=== PATIENT | female | born 1975 ===

== ENCOUNTER 2016-06-02 13:06 | Emergency (ER) | payer MEDICAID ==
[2016-06-02 13:14] VITALS: PULSE 78
[2016-06-02] MEDS ORDERED: LIDOCAINE 5% 1 EA PATCH TD ONE (15:16)
--- NOTE | 2016-06-02 15:19 | EDPHY ---
H & P Time Seen by Provider: 06/02/16 14:06 HPI/ROS: CHIEF COMPLAINT: midback pain, shortness of breath HISTORY OF PRESENT ILLNESS: 40-year-old homeless female presents to the emergency department with pain in her mid back and feeling short of breath. She states yesterday around 3:00 p.m. she lost her balance on some gravel and fell back on her back. She denies hitting her head or losing consciousness. She complains of upper to mid back pain and pain especially with deep breathing. She feels mildly short of breath. Denies any other chest pain. Denies abdominal pain. Denies pain in upper or lower extremities. Denies paresthesias in her upper lower extremities. REVIEW OF SYSTEMS: Constitutional: No fever, no chills. Eyes: No double or blurry vision. ENT: No sore throat. Respiratory: No cough, no shortness of breath. Cardiac: No chest pain. Gastrointestinal: No abdominal pain, vomiting or diarrhea. Genitourinary: No dysuria. Musculoskeletal: Back pain as above Skin: No rashes. Neurological: No headache. Past Medical/Surgical History: negative Social History: Homeless Smoking Status: Current every day smoker Physical Exam: General Appearance: Alert, no distress. 97% on room air. Eyes: Pupils equal and round. Extraocular motions are all intact. ENT: Mouth: Mucous membranes moist. Respiratory: No wheezing, rhonchi, or rales, lungs are clear to auscultation. Cardiovascular: Regular rate and rhythm. Gastrointestinal: Abdomen is soft and nontender, no masses, no rebound or guarding, bowel sounds normal. Neurological: Alert and oriented x 3, cranial nerves II through XII grossly intact Skin: Warm and dry, no rashes. Musculoskeletal: Tender with palpation along the upper thoracic spine. No palpable crepitus or other bony abnormality. No CVA tenderness bilaterally. Her neck is supple. Nontender to palpate along cervical or lumbar spine. No physical signs of trauma to her back. Extremities: Full range of motion and no peripheral edema. Psychiatric: Patient is oriented X 3, there is no agitation. Constitutional: Initial Vital Signs Temperature (C) 36.3 C 06/02/16 13:11 Heart Rate 78 06/02/16 13:11 Respiratory Rate 18 06/02/16 13:11 Blood Pressure 120/88 H 06/02/16 13:11 O2 Sat (%) 97 06/02/16 13:11 O2 Delivery Mode Room Air Allergies/Adverse Reactions: acetaminophen [From Vicodin] Allergy (Verified 06/02/16 13:10) hydrocodone bitartrate [From Vicodin] Allergy (Verified 06/02/16 13:10) Home Medications: Medication Instructions Recorded Vistaril 06/02/16 Medical Decision Making - Diagnostics Imaging: Chest x-ray reveals no acute pulmonary disease. No obvious compression deformity. This is reviewed by myself the PAC system as well as by the radiologist. ED Course/Re-evaluation: 40-year-old female presents after mechanical fall yesterday afternoon. She has reproducible pain with palpation along the thoracic spine. Chest x-ray was normal. No evidence of pneumothorax or obvious compression deformity. Patient was given Lidoderm patch since she has been taking ibuprofen without relief. I explained that we would not prescribe narcotic medication for her. I did encourage close follow-up with primary care provider and she should return if she feels short of breath, develops increasing pain or any other concerns. Differential Diagnosis: Back pain including but not limited to muscular pain, herniated disc, spine fracture, pneumothorax, contusion - Data Points Medications Given: Discontinued Medications Lidocaine (Lidoderm 5%) 1 ea TD EDNOW ONE Stop: 06/02/16 15:17 Last Admin: 06/02/16 15:52 Dose: 1 ea Departure - Departure Disposition: Home, Routine, Self-Care Clinical Impression: Contusion of mid back Qualifiers: Encounter type: initial encounter Laterality: unspecified laterality Qualified Code(s): S20.229A - Contusion of unspecified back wall of thorax, initial encounter Instructions: Back Pain (ED) Additional Instructions: Ibuprofen 600mg every 8 hours for pain as directed. Activity as tolerated. Deep breaths. Return if you have any change in symptoms or if you feel worse in any way. Lidoderm patch should be removed 12 hours after applied. Referrals: [facility],. [Clinic] - As per Instructions
[2016-06-02 15:53] VITALS: BP 123/84; RESP 17; TEMP 98.8; O2SAT 95
[2016-06-02] MEDS ORDERED: PATCH REMOVAL 1 EA PATCH TD SCH (21:00)
== END 2016-06-02 15:52 | disposition home or self-care (01) ==
DX: S20.229A Contusion of unspecified back wall of thorax, initial encounter (principal); F17.200 Nicotine dependence, unspecified, uncomplicated; W01.198A Fall on same level from slipping, tripping and stumbling with subsequent striking against other object, initial encounter; Y93.89 Activity, other specified